=== PATIENT | female | born 1975 | race Caucasian/White ===

== ENCOUNTER 2017-04-19 04:31 | Emergency (ER) | payer OTHER ==
[~2017-04-19] VITALS: Ht 157.5 cm; Wt 83.9 kg
--- OUTSIDE RECORDS SUMMARY | ~2017-04-19 | XMS ---
Demographics + + + | Address | [address] | | | [place] [address] | + + + | Preferred Language | Unknown | + + + | Marital Status | Unknown | + + + | Latter-Day Affiliation | Unknown | + + + | Race | Unknown | + + + | Ethnic Group | Unknown | + + + Author + + + | Author | [facility] | + + + | Organization | [facility] | + + + | Address | [address] | | | [place] [address] | + + + | Phone | [phone] | + + + Care Team Providers + + + + | Care Customer Equipment Engineer Name | Role | Phone | + + + + Unavailable | Unavailable | + + + + PROBLEMS +---------+ + + +--------+ + + | Type | Condition | ICD9-CM | [id number] | Onset | Condition | SNOMED | | | | Code | Code | Dates | Status | Code | +---------+ + + +--------+ + + | Problem | Family | Z80.41 | | | Active | [id number] | | | history of | | | | | | | | ovarian | | | | | | | | cancer | | | | | | +---------+ + + +--------+ + + | Problem | Acute | N94.9 | | | Active | [id number] | | | pelvic | | | | | | | | pain, | | | | | | | | female | | | | | | +---------+ + + +--------+ + + | Problem | Acute | N94.9 | | | Active | [id number] | | | pelvic | | | | | | | | pain, | | | | | | | | female | | | | | | +---------+ + + +--------+ + + | Problem | Endometrio | N80.1 | | | Active | [id number] | | | ma of | | | | | | | | ovary | | | | | | +---------+ + + +--------+ + + | Problem | Chronic | G44.229 | | | Active | [id number] | | | tension | | | | | | | | headache | | | | | | +---------+ + + +--------+ + + | Problem | Family | Z80.3 | | | Active | [id number] | | | history of | | | | | | | | breast | | | | | | | | cancer | | | | | | +---------+ + + +--------+ + + | Problem | History of | Z87.42 | | | Active | [id number] | | | ovarian | | | | | | | | cyst | | | | | | +---------+ + + +--------+ + + | Problem | Depression | | F32.9 | | Active | [id number] | +---------+ + + +--------+ + + ALLERGIES + + + + +--------+ | Substance | Reaction | Event Type | Date | Status | + + + + +--------+ | Vicodin | itch | Drug Allergy | Mar, | Active | + + + + +--------+ SOCIAL HISTORY Never Assessed PLAN OF CARE + +---------+ | Activity | Details | + +---------+ +---+ | | +---+ + + + | Follow Up | prn Reason:null | + + + | Pending Test | Mammogram: Screening | + + + | Pending Test | Ultrasound : Pelvis/TV | + + + VITAL SIGNS + + + + | Height | 61 in | 2017-04-06 | + + + + | Weight | 193.0 lbs | 2017-04-06 | + + + + | BMI | 36.46 kg/m2 | 2017-04-06 | + + + + | Heart Rate | 90 /min | 2017-04-06 | + + + + | Blood pressure systolic | 121 mm Hg | 2017-04-06 | + + + + | Blood pressure diastolic | 68 mm Hg | 2017-04-06 | + + + + MEDICATIONS + + + + + + + +--------+ | Medicati | Instruct | Dosage | Frequenc | Start | End Date | Duration | Status | | on | ions | | y | Date | | | | + + + + + + + +--------+ | Tylenol | Orally | 1 tablet | 6h | 25 Sep, | 5 Oct, | 10 days | Active | | with | every 6 | as | | 2017 | 2017 | | | | Codeine | hrs | needed | | | | | | | #3 | | | | | | | | | 300-30 | | | | | | | | | MG | | | | | | | | + + + + + + + +--------+ | Cycloben | Orally | 1 tablet | | | | 30 | Active | | zaprine | once | as | | | | | | | HCl 10 | daily | needed | | | | | | | mg | PRN for | | | | | | | | | tension | | | | | | | | | headache | | | | | | | + + + + + + + +--------+ | Ortho-Cy | Orally | 1 tablet | 24h | 25 Sep, | | 28 | Active | | clen | Once a | | | 2016 | | day(s) | | | (28) | day | | | | | | | | 0.25-35 | | | | | | | | | MG-MCG | | | | | | | | + + + + + + + +--------+ | Sertrali | Orally | 1/2 | 24h | 18 Abdirahman, | | | Active | | ne HCl | Once a | tablet | | 2016 | | | | | 100 mg | day | | | | | | | + + + + + + + +--------+ | Zyrtec 5 | orally | one | 24h | | | | Active | | mg | daily | tablet | | | | | | + + + + + + + +--------+ RESULTS No Results PROCEDURES + + +--------+ + | Procedure | Date Ordered | Result | Body Site | + + +--------+ + | DSCHRG MED/CURRENT | Apr 06, 2017 | | | | MED MERGE | | | | + + +--------+ + | TOBACCO NON-USER | Apr 06, 2017 | | | + + +--------+ + | DOC MEDS VERIFIED | Apr 06, 2017 | | | | W/PT OR RE | | | | + + +--------+ + IMMUNIZATIONS No Known Immunizations MEDICAL (GENERAL) HISTORY + + +-------+ | Type | Description | Date | + + +-------+ | Medical History | headache | | + + +-------+ | Medical History | seasonal allergies | | + + +-------+ | Medical History | MyRisk negative | | + + +-------+ | Surgical History | Left ovary removed, | 06/27 | | | endometrioma | | + + +-------+"
[~2017-04-19 04:31] MED LIST: MOTRIN IB200 MG PO; PAMELOR10 MG PO; PERCOCET 5-3251 EACH PO; SERTRALINE HCL50 MG PO; TYLENOL WITH C1 EACH PO; ZYRTEC10 MG PO
[2017-04-19] MEDS ORDERED: BIRTH CONTROL (04:40)
== END 2017-04-19 08:41 ==
LOC: ED 04:31
DX: N13.2 Hydronephrosis with renal and ureteral calculous obstruction (principal); F17.200 Nicotine dependence, unspecified, uncomplicated; Z90.89 Acquired absence of other organs; Z90.49 Acquired absence of other specified parts of digestive tract; Z88.5 Allergy status to narcotic agent; Z79.899 Other long term (current) drug therapy
CPT/HCPCS: 74177; 80053; 81001; 83690; 84703; 85025; 87088; 96361; 96374; 96375; 99285; J1170; J1885; J2405; J7030; Q9967

== ENCOUNTER 2022-04-22 15:49 | Emergency (ER) | payer OTHER, BC ==
[~2022-04-22] VITALS: Ht 157.5 cm; Wt 83.9 kg
[~2022-04-22 15:49] MED LIST changes: +BIRTH CONTROL
== END 2022-04-22 19:59 | disposition home or self-care (01) ==
LOC: ED 15:49
DX: S60.211A Contusion of right wrist, initial encounter (principal); F17.200 Nicotine dependence, unspecified, uncomplicated; Z88.5 Allergy status to narcotic agent; W01.0XXA Fall on same level from slipping, tripping and stumbling without subsequent striking against object, initial encounter
CPT/HCPCS: 73110; 73130; 99283-25